=== PATIENT | female | born 1975 | race Two or more races ===

== ENCOUNTER 2024-04-18 09:40 | Emergency (ER) | payer MEDICAID ==
[~2024-04-18] VITALS: Ht 149.9 cm; Wt 84.0 kg
[2024-04-18] MEDS: METHYLPREDNISOLONE SOD SUCC 125MG/2ML (ACT-O-VIAL) IM STA (10:23)
[2024-04-18 10:25] VITALS: PULSE 90; RESP 20; O2SAT 95
[2024-04-18 10:28] LABS: BASOPHILS % 0.6 % (0.0-2.0); EOSINOPHILS % 5.7 % (0.0-5.0); HEMATOCRIT. 42.9 % (36.0-48.0); HEMOGLOBIN. 13.7 g/dL (12.0-16.0); LYMPHOCYTES % 48.2 % (20.0-50.0); MEAN CORPUSCULAR HEMOGLOBIN 26.2 pg (28.0-32.0); MEAN CORPUSCULAR VOLUME 81.6 fL (81.0-99.0); NEUTROPHILS % 39.5 % (40.0-76.0); PLATELET 272 x1000/uL (130-400); RED BLOOD CELL COUNT 5.25 mill/uL (4.2-5.4); RED CELL DISTRIBUTION WIDTH 14.7 % (11.6-14.6); WHITE BLOOD COUNT 4.4 x1000/uL (4.5-11.0)
[2024-04-18 10:29] LABS: CHLORIDE 104 mEq/L (98-107); POTASSIUM 3.1 mEq/L (3.5-5.1); SODIUM 140 mEq/L (136-145)
[2024-04-18 10:30] LABS: CALCIUM 9.7 mg/dL (8.7-10.4); CARBON DIOXIDE 29 mEq/L (21-32)
[2024-04-18 10:35] LABS: GLUCOSE 131 mg/dL (70-105); UREA NITROGEN BLOOD 8 mg/dL (9-23)
[2024-04-18 10:36] LABS: TROPONIN I HIGH SENSITIVITY 9 ng/L (3.0-34)
[2024-04-18 10:39] LABS: CLARITY URINE CLEAR (CLEAR); COLOR URINE YELLOW (YELLOW); GLUCOSE URINE NEGATIVE (NEGATIVE); KETONES URINE NEGATIVE (NEGATIVE); LEUKOCYTE ESTERASE URINE NEGATIVE (NEGATIVE); NITRITE URINE NEGATIVE (NEGATIVE); OCCULT BLOOD URINE NEGATIVE (NEGATIVE); PROTEIN URINE NEGATIVE (NEGATIVE); SPECIFIC GRAVITY URINE 1.008 (1.005-1.030); UROBILINOGEN URINE 0.2 E.U./dL (0.2-1.0)
[2024-04-18] MEDS: IPRATROPIUM BROMIDE (0.02%) 0.5MG/2.5ML NEB HHN STA (10:46)
[2024-04-18] MEDS: ALBUTEROL (0.083%) 2.5MG/3ML NEB HHN STA (10:47)
[2024-04-18] MEDS: POTASSIUM CHLORIDE 20MEQ TABLET SR PO ONE (11:26)
[2024-04-18 11:55] VITALS: BP 162/98; PULSE 100; RESP 18; TEMP 36.94740; O2SAT 100
[2024-04-18] MEDS ORDERED: DEXTL MT (11:57)
[2024-04-18] MEDS ORDERED: ALBU18HF2 IH (11:57)
[2024-04-18] MEDS ORDERED: P50 MT (11:57)
== END 2024-04-18 12:05 | disposition home or self-care (01) ==
LOC: ER 09:40
DX: J45.901 Unspecified asthma with (acute) exacerbation (principal); J39.9 Disease of upper respiratory tract, unspecified; E87.6 Hypokalemia; R00.2 Palpitations; I10 Essential (primary) hypertension; Z88.0 Allergy status to penicillin
CPT/HCPCS: 80048; 81003; 81025; 83880; 85025; 84484; 36415; 71045; 94640; 93005; 94070; 99285; J2919; Z7610 ×3

== ENCOUNTER 2024-04-25 07:58 | Emergency (ER) | payer MEDICAID ==
[~2024-04-25] VITALS: Ht 165.1 cm; Wt 91.0 kg
[~2024-04-25 07:58] MED LIST: ALBU18HF2 IH; DEXTL MT; P50 MT
[2024-04-25 08:11] VITALS: BP 154/102; PULSE 106; RESP 18; TEMP 98.3; O2SAT 100
[2024-04-25 08:41] LABS: BASOPHILS % 0.8 % (0.0-2.0); EOSINOPHILS % 6.1 % (0.0-5.0); HEMATOCRIT. 41.9 % (36.0-48.0); HEMOGLOBIN. 13.6 g/dL (12.0-16.0); LYMPHOCYTES % 42.4 % (20.0-50.0); MEAN CORPUSCULAR HEMOGLOBIN 26.5 pg (28.0-32.0); MEAN CORPUSCULAR HGB CONC 32.5 g/dL (31.0-37.0); MEAN CORPUSCULAR VOLUME 81.6 fL (81.0-99.0); MEAN PLATELET VOLUME 8.1 fl (7.4-10.4); MONOCYTES % 6.1 % (2.0-8.0); NEUTROPHILS % 44.6 % (40.0-76.0); PLATELET 270 x1000/uL (130-400); RED BLOOD CELL COUNT 5.13 mill/uL (4.2-5.4); WHITE BLOOD COUNT 6.2 x1000/uL (4.5-11.0)
[2024-04-25 08:51] LABS: CALCIUM 9.5 mg/dL (8.7-10.4)
[2024-04-25 09:37] LABS: HCG SCREEN NEGATIVE
[2024-04-25 09:44] LABS: INR 0.9; PROTHROMBIN TIME 10.3 sec (9.6-11.0)
[2024-04-25 09:45] LABS: ALANINE AMINOTRANSFERASE 79 IU/L (10-49); ALBUMIN 4.5 g/dL (3.2-4.8); ASPARTATE AMINOTRANSFERASE 51 IU/L (<34); TROPONIN I HIGH SENSITIVITY 11 ng/L (3.0-34)
[2024-04-25 09:46] LABS: BILIRUBIN DIRECT < 0.1 mg/dL (<=3.0); BILIRUBIN TOTAL 0.3 mg/dL (0.1-1.0); PROTEIN TOTAL 7.6 g/dL (6.0-8.3)
[2024-04-25 10:09] LABS: CLARITY URINE CLEAR (CLEAR); COLOR URINE YELLOW (YELLOW); GLUCOSE URINE NEGATIVE (NEGATIVE); KETONES URINE NEGATIVE (NEGATIVE); LEUKOCYTE ESTERASE URINE NEGATIVE (NEGATIVE); NITRITE URINE NEGATIVE (NEGATIVE); OCCULT BLOOD URINE NEGATIVE (NEGATIVE); PH URINE 5.5 (4.5-8.0); PROTEIN URINE NEGATIVE (NEGATIVE); UROBILINOGEN URINE 0.2 E.U./dL (0.2-1.0)
[2024-04-25 15:41] LABS: THYROID STIMULATING HORMONE 2.72 uIU/mL (0.55-4.78)
== END 2024-04-25 16:11 | disposition home or self-care (01) ==
LOC: ER 08:09
DX: D36.9 Benign neoplasm, unspecified site (principal); J45.909 Unspecified asthma, uncomplicated; Z88.0 Allergy status to penicillin
CPT/HCPCS: 36415; 71045; 74176; 76830; 76856; 80048; 80076; 81003; 84443; 84484; 84703; 85025; 93005; 99285